=== PATIENT | male | born 1990 | race Asian ===

== ENCOUNTER 2024-11-23 02:13 | Emergency (ER) | payer OTHER, SELFPAY ==
[2024-11-23 02:18] VITALS: BP 146/70; PULSE 83; RESP 18; TEMP 37.3; O2SAT 99; BMI 24.7
--- NOTE | 2024-11-23 02:25 | DI.RAD.S_ITS ---
PROCEDURE: XR HAND RT MIN 3V INDICATIONS: 4th and 5th finger injury TECHNIQUE: 5 views of the hand(s) acquired. COMPARISON: None. FINDINGS: Bones: Acute slightly comminuted transverse fracture through mid shaft of 4th proximal phalanx is seen with ulnar and volar displacement and angulation at fracture site. No other fracture or dislocation . No suspicious bony lesions. Soft tissues: No suspicious soft tissue calcifications. IMPRESSION: Acute slightly comminuted and displaced transverse fracture through 4th proximal phalangeal shaft with volar angulation as above. Dictated by: Nico Bowling M.D. on 11/23/2024 at 8:06 Approved by: Nico Bowling M.D. on 11/23/2024 at 8:07
--- NOTE | 2024-11-23 02:44 | ED_ITS ---
HPI - Extremity Injury (Upper) General Chief Complaint: Extremity Injury, Upper Stated Complaint: rt hand injury possible broken Time Seen by Provider: 11/23/24 02:19 Source: patient Mode of arrival: Ambulatory History of Present Illness HPI narrative: Patient is a 33-year-old male here with right hand injury. Brought in by [employer] but not under arrest. 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 Had significant pain in 4th and 5th finger. Reports tetanus is up-to-date and takes no medications. He does have lacerations on the 4th and 5th finger. Right-hand dominant. Related Data Previous Rx's Medication Instructions Recorded cephalexin 500 mg capsule 500 mg PO QID #28 caps 11/23/24 hydrocodone 5 mg-acetaminophen 325 1 tab PO Q6H PRN pain #10 tabs 11/23/24 mg tablet Allergies Allergy/AdvReac Type Severity Reaction Status Date / Time No Known Drug Allergies Allergy Verified 11/23/24 02:20 Patient History Social History Smoking Status: Never smoker Smoking Status: Never smoker Exam Initial Vital Signs Initial Vital Signs: Vital Signs Temperature 99.1 F 11/23/24 02:18 Pulse Rate 83 11/23/24 02:18 Respiratory Rate 18 11/23/24 02:18 Blood Pressure 146/70 H 11/23/24 02:18 Pulse Oximetry 99 11/23/24 02:18 Oxygen Delivery Method Room Air 11/23/24 02:18 GENERAL: Well-appearing, well-nourished and in no acute distress. CARDIOVASCULAR: peripheral pulses in tact, cap refill <2 sec RESPIRATORY: No respiratory distress, speaks in full sentences without difficulty EXTREMITIES: Normal range of motion, no clubbing or edema. Neurovascularly intact Right hand: 4th finger obvious bony deformity cap refill less than 2 seconds he has lacerat ion 1 cm in noted at the MCP area would consider this open fracture 5th finger able to flex extend 1 cm laceration between MCP and PIP NEUROLOGICAL: Cranial nerves II through XII grossly intact. Normal gait and speech. SKIN: 4th finger dorsal side 1 cm laceration near MCP, would consider this open fracture Right finger 1 cm laceration As described above low surgery should 1 cm as described above Procedures Laceration Repair Laceration 1: Site: hand (4th finger) Side (If applicable): right Size (cm): 1 Description: linear Depth: simple, single layer Local Anesthetic: lidocaine 1% Amount of anesthesia used (mL): 3 Pre-repair: wound explored, irrigated extensively and deep structures intact Skin layer closed with: nylon Skin layer suture size: 4-0 Number of sutures: 1 Technique: simple, interrupted Laceration 2: Site: hand (5th finger) Side (If applicable): right Size (cm): 1 Description: linear Depth: simple, single layer Local Anesthetic: lidocaine 1% Amount of anesthesia used (mL): 3 Pre-repair: wound explored, irrigated extensively and deep structures intact Skin layer closed with: nylon Skin layer suture size: 4-0 Number of sutures: 1 Technique: simple, interrupted Nerve Block Nerve Block 1: Local Anesthetic: lidocaine 1% Amount of anesthesia used (mL): 5 Side: right Nerve Blocks: digital Procedure Successful: Yes Patient Tolerated Procedure: Well and No complications Complications: none Orthopedic Fracture Reduction Fracture #1: Side: right Fracture Reduction Location: finger Analgesia: other (digital) Technique: direct manipulation Post Reduction X-rays Demonstrate: acceptable reduction Post-reduction neuro exam: intact Post-reduction vascular exam: intact Splint Applied: Yes Orthopedic Splinting/Casting Injury #1: Upper Extremity Injury Location: finger Upper Extremity Immobilizer: ulnar gutter Post splinting neuro exam: intact Placed by: Provider Course Orders Ordered: ED Orders 11/23/24 02:25 XR hand RT min 3V Stat 11/23/24 03:23 XR hand RT 2V Stat Discontinued Medications Acetaminophen (Acetaminophen 325 Mg Tablet) 650 mg PO NOW ONE Stop: 11/23/24 02:32 Last Admin: 11/23/24 02:58 Dose: 650 mg Documented By: ANDRES Hydrocodone Bitart/Acetaminophen (Hydrocodone/Acet 5/325 Tablet) 1 tab PO NOW ONE Stop: 11/23/24 03:26 Last Admin: 11/23/24 03:30 Dose: 1 tab Documented By: ANDRES Hydrocodone Bitart/Acetaminophen (Hydrocodone/Acet 5/325 Prepack) 1 bottle MISC DIRECTED ONE Stop: 11/23/24 04:06 Last Admin: 11/23/24 04:20 Dose: 1 bottle Documented By: Cefazolin Sodium (Cephalexin 250 Mg Cap Prepack) 1 bottle MISC DIRECTED ONE Stop: 11/23/24 04:06 Last Admin: 11/23/24 04:19 Dose: 500 mg Documented By: Cephalexin HCl (Cephalexin 250 Mg Capsule) 500 mg PO NOW ONE Stop: 11/23/24 03:26 Last Admin: 11/23/24 03:30 Dose: 500 mg Documented By: ANDRES Ibuprofen (Ibuprofen 400 Mg Tablet) 800 mg PO NOW ONE Stop: 11/23/24 02:26 Lidocaine HCl (Lidocaine 1% (Pf) 2ml) 2 ml SUBCUT NOW ONE Stop: 11/23/24 02:52 Lidocaine HCl (Lidocaine 1% (Pf) 5 Ml) 5 ml INJ NOW ONE Stop: 11/23/24 02:55 Last Admin: 11/23/24 02:59 Dose: 5 ml Documented By: ANDRES Lidocaine HCl (Lidocaine 1% (Pf) 5 Ml) 5 ml INJ NOW ONE Stop: 11/23/24 03:08 Last Admin: 11/23/24 03:14 Dose: 5 ml Documented By: Vital Signs Vital signs: Vital Signs - 8 hr 11/23/24 02:18 11/23/24 04:29 Temperature 99.1 F Pulse Rate 83 75 Respiratory Rate 18 16 Blood Pressure 146/70 H 122/60 Pulse Oximetry 99 98 Oxygen Delivery Method Room Air Room Air MDM - Extremity Injury (Upper) Imaging Data Extremity x-ray #1: Radiologist's Impression: Transverse displaced fracture of proximal phalanx the 4th digit. Displaced fracture of proximal phalanx of 4th digit Extremity x-ray #2: Radiologist's Impression: Transverse minimally displaced fracture proximal phalanx of 4th digit associated with soft tissue swelling MDM Narrative Medical decision making narrative: Patient 33-year-old healthy male presenting today with right hand injury while at work. He was obvious 4th finger deformity with laceration would consider a small open fracture. It was irrigated Xeroform placed suture placed. Then ulnar gutter splint. [id number] Dr [facility] reviewed x-rays. At this time no need for surgery with good reduction. Follow closely with Orthopedics agrees with pain meds and antibiotics I spoke with René Shaw with [employer], paper work filled out Discharge Plan Departure Patient Disposition: Home Clinical Impression: Open displaced fracture of phalanx of ring finger, Finger laceration Instructions: Finger Fracture Activity Restrictions/Additional Instructions: *You have been diagnosed with right open finger fracture dislocation, 5th finger laceration *What to do: You will need to follow-up with orthopedics/bone doctor when you get home Have sutures removed in about 7-10 days Keep splint dry *Continue to take medications as directed Keflex 500 mg 4 times a day for 7 days Shepherd 1 tablet every 6 hours only if needed for severe pain Motrin 600 mg every 6 hours if needed for [id number] pain *Follow up with your primary care provider in 2-3 days or call [phone] Follow up with Orthopedics in about 2-3 days *Return to ER if you should have increasing redness swelling pain numbness tingling or any new, worsening or concerning symptoms Prescriptions: New hydrocodone-acetaminophen 5-325 mg tablet 1 tab PO Q6H PRN (Reason: pain) Qty: 10 0RF cephalexin 500 mg capsule 500 mg PO QID Qty: 28 0RF Stand Alone Forms: Patient Portal/API/Survey
[2024-11-23] MEDS: ACETAMINOPHEN 325 MG TABLET 650 MG PO (02:58)
[2024-11-23] MEDS: LIDOCAINE 1% (PF) 5 ML INJ ×2 (02:59→03:14)
--- NOTE | 2024-11-23 03:23 | DI.RAD.S_ITS ---
PROCEDURE: XR HAND RT 2V INDICATIONS: post reduction TECHNIQUE: 3 views of the hand(s) acquired. COMPARISON: [facility], CR, XR HAND RT MIN 3V, 11/23/2024, 2:36. FINDINGS: Bones: There is interval reduction of earlier noted transverse fracture through 4th proximal phalangeal shaft with improved 4th finger alignment. No significant displacement or angulation is noted on the current study. Carpal bones are normally aligned. No suspicious bony lesions. Soft tissues: No suspicious soft tissue calcifications. IMPRESSION: Interval reduction of earlier noted transverse fracture through 4th proximal phalangeal shaft with improved 4th finger alignment. No discrepancies. Dictated by: Nico Bowling M.D. on 11/23/2024 at 8:07 Approved by: Nico Bowling M.D. on 11/23/2024 at 8:08
[2024-11-23] MEDS: cephALEXin 250 MG CAPSULE 500 MG PO (03:30)
[2024-11-23] MEDS: HYDROCODONE/ACET 5/325 TABLET 1 TAB PO (03:30)
[2024-11-23] MEDS: cephALEXin 250 MG CAP PREPACK 1 BOTTLE MISC (04:19)
[2024-11-23] MEDS: HYDROCODONE/ACET 5/325 PREPACK 1 BOTTLE MISC (04:20)
[2024-11-23 04:29] VITALS: BP 122/60; PULSE 75; RESP 16; O2SAT 98
== END 2024-11-23 04:32 | disposition home or self-care (01) ==
PROVIDERS: Emergency Provider Emergency Medicine
DX: S62.614A Displaced fracture of proximal phalanx of right ring finger, initial encounter for closed fracture (principal); S61.214A Laceration without foreign body of right ring finger without damage to nail, initial encounter; S61.216A Laceration without foreign body of right little finger without damage to nail, initial encounter; X58.XXXA Exposure to other specified factors, initial encounter
CPT/HCPCS: 12001; 26725; 64450; 73120; 73130; 99283; 99284